=== PATIENT | male | born 1945 | race Caucasian/White ===

== ENCOUNTER 2017-08-29 11:25 | Emergency (ER) | payer BC, OTHER ==
[2017-08-29 12:21] VITALS: BP 144/71
--- NOTE | 2017-08-29 12:29 | UC ---
Respiratory Complaint HPI - HPI Summary HPI Summary: 71 yo male presents with intermittently productive cough for the last 1.5 weeks. Has been taking robitussin and OTC cold medicine with no relief. Denies fever, chills, SOB, chest pain, n/v. - History of Current Complaint Chief Complaint: UCGeneralIllness Stated Complaint: COUGH, CONGESTION Hx Obtained From: Patient Onset/Duration: Gradual Onset Severity Currently: None Pain Intensity: 0 Character: Cough: Productive - Allergies/Home Medications Allergies/Adverse Reactions: Allergies Allergy/AdvReac Type Severity Reaction Status Date / Time No Known Allergies Allergy Verified 08/29/17 12:21 Home Medications: Home Medications Ezetimibe TAB* [Zetia TAB*] 10 mg PO DAILY 08/29/17 [History Confirmed 08/29/17] Isosorbide Mononitrate ER TAB* [Imdur ER TAB*] 30 mg PO DAILY 08/29/17 [History Confirmed 08/29/17] Metoprolol Tartrate TAB* [Lopressor TAB*] 0.5 tab PO BID 08/29/17 [History Confirmed 08/29/17] Ramipril CAP* [Altace CAP*] 5 mg PO DAILY 08/29/17 [History Confirmed 08/29/17] Warfarin TAB(*) [Coumadin TAB(*)] 5 mg PO 1700 08/29/17 [History Confirmed 08/29] PMH/Surg Hx/FS Hx/Imm Hx Endocrine History: Dyslipidemia Cardiovascular History: Cardiac Disease, Hypertension, Other Other Cardiovascular History: Artificial valve - Surgical History Surgical History: Yes Surgery Procedure, Year, and Place: Mechanical valve, 1997, 3 stents, 05/2012 - Family History Known Family History: Positive: Cardiac Disease - Social History Occupation: Retired Lives: With Family Alcohol Use: None Substance Use Type: None Smoking Status (MU): Never Smoked Tobacco Review of Systems Constitutional: Negative Skin: Negative Eyes: Negative ENT: Negative Respiratory: Cough Cardiovascular: Negative Gastrointestinal: Negative Neurovascular: Negative Neurological: Negative Psychological: Negative All Other Systems Reviewed And Are Negative: Yes Physical Exam - Summary Physical Exam Summary: GENERAL: NAD. WDWN. No pain distress. SKIN: No rashes, sores, lesions, or open wounds. HEENT: Head: AT/NC Eyes: Conjunctiva clear without inflammation or discharge. Ears: Hearing grossly normal. TMs intact, no bulging, erythema, or edema. Nose: Nasal mucosa pink and moist. NTTP maxillary and frontal sinus. Throat: Posterior oropharynx without exudates, erythema, or tonsillar enlargement. Uvula midline. NECK: Supple. Nontender. No lymphadenopathy. CHEST: Moderate wheezing throughout. No r/r. No accessory muscle use. Breathing comfortably and in no distress. CV: RRR. Without m/r/g. Pulses intact. Brisk cap refill. NEURO: Alert. CN II-XII grossly intact. PSYCH: Age appropriate behavior. Triage Information Reviewed: Yes Vital Signs: Initial Vital Signs Temp 98.7 F 08/29/17 12:18 Pulse 66 08/29/17 12:18 Resp 14 08/29/17 12:18 BP 144/71 08/29/17 12:18 Pulse Ox 97 08/29/17 12:18 Diagnostic Evaluation - Laboratory O2 Sat by Pulse Oximetry: 97 Respiratory Course/Dx - Course Course Of Treatment: CXR: IMPRESSION: NO ACTIVE CARDIOPULMONARY DISEASE. Suspect bronchitis, but given his significant health history will rx for anbx in addition to albuterol inhaler. - Differential Dx/Diagnosis Provider Diagnoses: Bronchitis Discharge - Sign-Out/Discharge Documenting (check all that apply): Discharge/Admit/Transfer - Discharge Plan Condition: Stable Disposition: HOME Prescriptions: Albuterol HFA INHALER* [Ventolin HFA Inhaler*] 1 - 2 puff INH Q6H PRN #1 mdi PRN Reason: Sob/Wheezing Amoxicillin PO (*) [Amoxicillin 500 MG CAP*] 500 mg PO Q12H #20 cap Patient Education Materials: Acute Bronchitis (ED) Referrals: Simone Post MD [Primary Care Provider] - Additional Instructions: If you develop a fever, shortness of breath, chest pain, new or worsening symptoms - please call your PCP or go to the ED. Your blood pressure was high at todays visit. Please see your primary provider within 4 weeks for recheck and re-evaluation. - Billing Disposition and Condition Condition: STABLE Disposition: HOME
--- NOTE | 2017-08-29 13:16 | RAD ---
HISTORY: Cough COMPARISONS: None VIEWS: 4: Frontal dual-energy and lateral views of the chest. FINDINGS: CARDIOMEDIASTINAL SILHOUETTE: The aorta is tortuous. The cardiomediastinal silhouette is otherwise unremarkable. SHEREEN: The shereen are normal. PLEURA: The costophrenic angles are sharp. No pleural abnormalities are noted. LUNG PARENCHYMA: The lungs are clear. ABDOMEN: The upper abdomen is clear. There is no subphrenic gas. BONES AND SOFT TISSUES: The patient is status post median sternotomy. Degenerative changes are noted. OTHER: None. IMPRESSION: NO ACTIVE CARDIOPULMONARY DISEASE.
== END 2017-08-29 13:35 | disposition home or self-care (01) ==
LOC: UCCORT 11:25
DX: J40 Bronchitis, not specified as acute or chronic (principal); Z79.01 Long term (current) use of anticoagulants; Z95.2 Presence of prosthetic heart valve; E78.5 Hyperlipidemia, unspecified; I51.9 Heart disease, unspecified; I10 Essential (primary) hypertension
CPT/HCPCS: 71046; 99202; G0463